=== PATIENT | male | born 1995 | race Two or more races ===

== ENCOUNTER 2017-07-27 20:38 | Inpatient (IN) | payer MEDICAID ==
[~2017-07-27] VITALS: Ht 188 cm; Wt 178.0 kg
[2017-07-27 22:42] LABS: Urine Bacteria NONE SEEN /hpf (None Seen); Urine Blood Negative /uL (Negative); Urine Mucus FEW (None Seen); Urine Specific Gravity 1.015 (1.001-1.035); Urine WBC 3 /hpf (0 - 3)
[2017-07-27] MEDS ORDERED: cefTRIAXone 1GM/10ml IVPUSH 10 ML IV ONE (22:45)
[2017-07-27] MEDS ORDERED: fentaNYL CITRATE 100 MCG/2 ML VL IV ONE (22:45)
[2017-07-27] MEDS ORDERED: SODIUM CHLORIDE 0.9% 1,000 ML IV ONE (22:45)
[2017-07-27] MEDS ORDERED: ACETAMINOPHEN 325 MG TAB PO ONE (23:00)
[2017-07-27 23:13] LABS: Basophils # (auto) 0.1 uL; Eosinophils # (auto) 0 uL; Lymphocytes # (auto) 0.6 uL; Monocytes # (auto) 1.8 uL; Neutrophils # (auto) 18.8 uL; Nucleated Red Blood Cells % 0.3 %
[2017-07-27 23:15] LABS: Basophils % (auto) 0.3 % (0.0-2.0); Hematocrit 45.5 % (41.0-53.0); Hemoglobin 15.6 g/dL (13.5-17.5); Lymphocytes % (auto) 2.8 % (10.0-50.0); Mean Corpuscular Hemoglobin 26.9 pg (28.0-32.0); Mean Corpuscular Hgb Conc. 34.3 g/dL (32.0-36.0); Mean Corpuscular Volume 78.5 fL (80.0-100.0); Monocytes % (auto) 8.4 % (0.0-12.0); Neutrophils % (auto) 88.5 % (37.0-80.0); Platelet Count (auto) 209 10^3/uL (140-450); Red Blood Cells 5.79 10^6/uL (4.5-5.90); Red Cell Distribution Width 14.6 % (11.8-14.3); White Blood Cell 21.2 10^3/uL (4.4-10.8)
[2017-07-28] VITALS (7 sets, daily range): BP systolic 133–141; BP diastolic 73–81
[2017-07-28] MEDS ORDERED: SOD CHL 0.45% WITH 20MEQ KCL 1,000 ML IV ONE (00:45)
[2017-07-28 01:17] LABS: Albumin 3.7 g/dL (3.4-5.0); BUN/Creatinine Ratio 13.8; Calcium 8.8 mg/dL (8.5-10.1)
[2017-07-28 01:25] LABS: Bilirubin, Total 1.2 mg/dL (0.2-1.0); Total Protein 8.4 g/dL (6.4-8.2)
[2017-07-28] MEDS: SOD CHL 0.45% WITH 20MEQ KCL 1,000 ML IV SCH ×3 (01:25→13:58)
[2017-07-28 01:26] LABS: Potassium 3.6 mmol/L (3.5-5.1)
[2017-07-28 01:42] LABS: INR 1.07 (0.9-1.15); Partial Thromboplastin Time 28.9 sec (23.78-33.04); Prothrombin Time 11.4 sec (9.27-12.13)
[2017-07-28] MEDS ORDERED: metroNIDAZOLE 500MG/100ML 100 ML IV ONE (02:45)
[2017-07-28] MEDS ORDERED: ACETAMINOPHEN 325 MG TAB PO PRN (02:45)
[2017-07-28] MEDS ORDERED: NITROGLYCERIN 0.4 MG SL TAB SL PRN (02:45)
[2017-07-28] MEDS ORDERED: MORPHINE SULFATE 8mg/ml INJ SDV IV PRN ×2 (02:45)
[2017-07-28] MEDS ORDERED: PANTOPRAZOLE 40 MG/10 ML VIAL IV ONE (02:45)
[2017-07-28] MEDS: ONDANSETRON HCL 4 MG/2 ML VIAL IV PRN (03:01)
[2017-07-28] MEDS: PIPERACILLIN-TAZOB 3.375GM 100 ML IV SCH ×4 (06:00→23:54)
[2017-07-28] MEDS: metroNIDAZOLE 500MG/100ML 100 ML IV SCH ×3 (06:00→21:30)
[2017-07-28] MEDS: PANTOPRAZOLE 40 MG/10 ML VIAL IV SCH (09:56)
[2017-07-28] MEDS ORDERED: fentaNYL CITRATE 100 MCG/2 ML VL ONE (10:06)
[2017-07-28] MEDS ORDERED: MIDAZOLAM HCL 1MG/1ML-2 ML VIAL ONE (10:06)
[2017-07-28] MEDS ORDERED: KETOROLAC TROMETH 60MG/2ML VIAL IM ONE (10:07)
[2017-07-28] MEDS ORDERED: ONDANSETRON HCL 4 MG/2 ML VIAL ONE (10:07)
[2017-07-28] MEDS ORDERED: ROCURONIUM 10MG/ML 10ML VIAL IV ONE (10:07)
[2017-07-28] MEDS ORDERED: GLYCOPYRROLATE 0.2 MG/ML 1ML VIAL ONE (10:07)
[2017-07-28] MEDS ORDERED: NEOSTIGMINE 1 MG/ML INJ (10mg/10ML VIAL) ONE (10:07)
[2017-07-28] MEDS ORDERED: PROPOFOL 10 MG/ML 20 ML IV ONE (10:07)
[2017-07-28] MEDS ORDERED: ceFAZolin 1GM/100ML 100 ML IV ONE (10:23)
[2017-07-28] MEDS ORDERED: MEPERIDINE HCL (50 MG/ML) 1 ML VIAL ONE (10:59)
[2017-07-28] MEDS ORDERED: SODIUM CHLORIDE LOCK 20 ML ONE (11:01)
[2017-07-28] MEDS ORDERED: POVIDONE IODINE 10 % TOPICAL OINT 30GM TOP ONE (11:37)
[2017-07-28] MEDS ORDERED: KETOROLAC TROMETH 30 MG/ML 1ML VIAL IV ONE (12:30)
[2017-07-28] MEDS ORDERED: METOCLOPRAMIDE HCL 5MG/ml INJ 2ml VIAL IV ONE (12:30)
[2017-07-28] MEDS ORDERED: HYDROmorphone HCL 2 MG/ML VL IV PRN (12:30)
[2017-07-29 05:00] VITALS: BP 157/82
[2017-07-29] MEDS: metroNIDAZOLE 500MG/100ML 100 ML IV SCH ×3 (05:34→23:29)
[2017-07-29] MEDS: PIPERACILLIN-TAZOB 3.375GM 100 ML IV SCH ×3 (06:17→18:55)
[2017-07-29 06:25] LABS: Basophils # (auto) 0 uL; Eosinophils # (auto) 0 uL; Hemoglobin 14.2 g/dL (13.5-17.5); Mean Corpuscular Hemoglobin 26.9 pg (28.0-32.0); Monocytes # (auto) 1.6 uL
[2017-07-29 06:29] LABS: Basophils % (auto) 0.1 % (0.0-2.0); Lymphocytes % (auto) 4.5 % (10.0-50.0); Mean Corpuscular Hgb Conc. 33.9 g/dL (32.0-36.0); Mean Corpuscular Volume 79.4 fL (80.0-100.0); Monocytes % (auto) 7.2 % (0.0-12.0); Neutrophils # (auto) 19.2 uL; Neutrophils % (auto) 88.2 % (37.0-80.0); Nucleated Red Blood Cells % 0.1 %; Platelet Count (auto) 178 10^3/uL (140-450); Red Blood Cells 5.28 10^6/uL (4.5-5.90); Red Cell Distribution Width 14.1 % (11.8-14.3); White Blood Cell 21.7 10^3/uL (4.4-10.8)
[2017-07-29] MEDS: SOD CHL 0.45% WITH 20MEQ KCL 1,000 ML IV SCH ×3 (06:30→18:55)
[2017-07-29] MEDS: ONDANSETRON HCL 4 MG/2 ML VIAL IV PRN (06:33)
[2017-07-29 06:39] LABS: Albumin 3.1 g/dL (3.4-5.0); Calcium 9.1 mg/dL (8.5-10.1); Potassium 3.7 mmol/L (3.5-5.1)
[2017-07-29 06:41] LABS: Bilirubin, Total 1.8 mg/dL (0.2-1.0); Total Protein 8.1 g/dL (6.4-8.2)
[2017-07-29 09:00] VITALS: BP 148/76
[2017-07-29] MEDS: PANTOPRAZOLE 40 MG/10 ML VIAL IV SCH (09:38)
[2017-07-29] MEDS: HYDROcodone-ACET 5/325MG TAB PO PRN ×4 (10:20→23:29)
[2017-07-29 13:00] VITALS: BP 154/88
[2017-07-29 17:00] VITALS: BP 141/85
[2017-07-29 23:42] VITALS: BP 140/76
[2017-07-30] MEDS: PIPERACILLIN-TAZOB 3.375GM 100 ML IV SCH ×4 (00:37→17:24)
[2017-07-30 04:55] VITALS: BP 130/70
[2017-07-30] MEDS: metroNIDAZOLE 500MG/100ML 100 ML IV SCH ×3 (06:24→21:43)
[2017-07-30] MEDS: SOD CHL 0.45% WITH 20MEQ KCL 1,000 ML IV SCH ×2 (06:25→11:20)
[2017-07-30 08:00] VITALS: BP 140/87
[2017-07-30 09:00] VITALS: BP 140/87
[2017-07-30] MEDS: PANTOPRAZOLE 40 MG/10 ML VIAL IV SCH (09:26)
[2017-07-30] MEDS: HYDROcodone-ACET 5/325MG TAB PO PRN (10:49)
[2017-07-30 13:00] VITALS: BP 144/75
[2017-07-30 17:00] VITALS: BP 143/77
[2017-07-30 23:10] VITALS: BP 148/74
[2017-07-31] MEDS: PIPERACILLIN-TAZOB 3.375GM 100 ML IV SCH ×2 (02:48→04:57)
[2017-07-31] MEDS: SOD CHL 0.45% WITH 20MEQ KCL 1,000 ML IV SCH ×4 (02:50→19:40)
[2017-07-31] MEDS: metroNIDAZOLE 500MG/100ML 100 ML IV SCH (04:57)
[2017-07-31 05:21] VITALS: BP 149/89
[2017-07-31 08:00] VITALS: BP_SYST 111; BP_SYST 151; BP_DIAS 66; BP_DIAS 79
[2017-07-31] MEDS: PANTOPRAZOLE 40 MG/10 ML VIAL IV SCH (10:15)
[2017-07-31 10:47] LABS: Basophils # (auto) 0 uL; Basophils % (auto) 0.2 % (0.0-2.0); Eosinophils # (auto) 0.1 uL; Monocytes # (auto) 1.6 uL
[2017-07-31 10:48] LABS: Eosinophils % (auto) 0.7 % (0.0-7.0); Mean Corpuscular Hgb Conc. 33.3 g/dL (32.0-36.0); Mean Corpuscular Volume 79.4 fL (80.0-100.0); Monocytes % (auto) 12.2 % (0.0-12.0); Neutrophils # (auto) 10.3 uL; Neutrophils % (auto) 78.9 % (37.0-80.0); Nucleated Red Blood Cells % 0.1 %; Platelet Count (auto) 209 10^3/uL (140-450); Red Blood Cells 4.91 10^6/uL (4.5-5.90); Red Cell Distribution Width 14.7 % (11.8-14.3)
[2017-07-31] MEDS ORDERED: LEVOFLOXACIN 750MG 150 ML IV SCH (11:00)
[2017-07-31 11:01] LABS: Mean Corpuscular Hemoglobin 26.4 pg (28.0-32.0)
[2017-07-31 11:05] LABS: BUN/Creatinine Ratio 13.4; Calcium 8.6 mg/dL (8.5-10.1); Potassium 3.3 mmol/L (3.5-5.1)
[2017-07-31] MEDS: LEVOFLOXACIN 250 MG TAB PO SCH (11:10)
[2017-07-31 12:00] VITALS: BP 156/73
[2017-07-31] MEDS: metroNIDAZOLE 500 MG TAB PO SCH ×2 (13:35→21:37)
[2017-07-31 16:44] VITALS: BP 146/85
[2017-07-31 20:00] VITALS: BP 139/71
[2017-07-31 22:27] VITALS: BP 139/71
[2017-08-01 05:02] VITALS: BP 145/87
[2017-08-01] MEDS: metroNIDAZOLE 500 MG TAB PO SCH ×2 (05:53→14:46)
[2017-08-01] MEDS: SOD CHL 0.45% WITH 20MEQ KCL 1,000 ML IV SCH ×2 (05:53→13:20)
[2017-08-01 08:59] VITALS: BP 151/77
[2017-08-01] MEDS: PANTOPRAZOLE 40 MG/10 ML VIAL IV SCH (09:41)
[2017-08-01] MEDS: LEVOFLOXACIN 250 MG TAB PO SCH (11:08)
[2017-08-01 14:19] VITALS: BP 161/82
[2017-08-01 17:00] VITALS: BP 155/72
[2017-08-01 17:29] VITALS: BP 143/83
== END 2017-08-01 18:45 | disposition home or self-care (01) | DRG 225 ==
LOC: ER 20:38 → TELE 20:39 → TELE-WESTW 07-28 03:03
PROVIDERS: ADMIT Nurse Practitioner; ATTEND Internal Medicine
PROC: 0DTJ4ZZ Resection of Appendix, Percutaneous Endoscopic Approach (ICD-10-PCS; principal; 2017-07-28 10:39)
DX: K35.2 Acute appendicitis with generalized peritonitis (principal); R65.11 Systemic inflammatory response syndrome (SIRS) of non-infectious origin with acute organ dysfunction; K76.0 Fatty (change of) liver, not elsewhere classified; Z68.43 Body mass index [BMI] 50.0-59.9, adult; E66.01 Morbid (severe) obesity due to excess calories; I48.91 Unspecified atrial fibrillation; I49.3 Ventricular premature depolarization; I97.791 Other intraoperative cardiac functional disturbances during other surgery; Y83.8 Other surgical procedures as the cause of abnormal reaction of the patient, or of later complication, without mention of misadventure at the time of the procedure; Y92.89 Other specified places as the place of occurrence of the external cause; Z71.3 Dietary counseling and surveillance
CPT/HCPCS: 36415; 71045; 74176; 80048; 80053; 81001; 83690; 85025; 85610; 85730; 86850; 86900; 86901; 87075; 87077; 87186; 87205; 93005; 96361; 96365; 96375; C9113; J0690; J1885; J2250; J2270; J2405; J2543; J2704; J3490

== ENCOUNTER 2017-08-18 08:30 | Inpatient (IN) | payer MEDICAID ==
[~2017-08-18] VITALS: Ht 185.4 cm; Wt 165.0 kg
[2017-08-18] MEDS ORDERED: SODIUM CHLORIDE 0.9% 1,000 ML IVB ONE (08:44)
[2017-08-18] MEDS ORDERED: IOHEXOL 300 MG/ML 100ML BOTTLE IJ ONE (11:20)
[2017-08-18 11:45] LABS: Basophils # (auto) 0 uL; Basophils % (auto) 0.2 % (0.0-2.0); Eosinophils # (auto) 0 uL; Eosinophils % (auto) 0.2 % (0.0-7.0); Hematocrit 39.2 % (41.0-53.0); Hemoglobin 12.9 g/dL (13.5-17.5); Lymphocytes # (auto) 1.4 uL; Lymphocytes % (auto) 9.5 % (10.0-50.0); Mean Corpuscular Hemoglobin 25.7 pg (28.0-32.0); Mean Corpuscular Hgb Conc. 32.9 g/dL (32.0-36.0); Mean Corpuscular Volume 78.2 fL (80.0-100.0); Monocytes # (auto) 1.5 uL; Neutrophils % (auto) 80.1 % (37.0-80.0); Platelet Count (auto) 274 10^3/uL (140-450); Red Blood Cells 5.01 10^6/uL (4.5-5.90)
[2017-08-18 12:03] LABS: Albumin 3.2 g/dL (3.4-5.0); BUN/Creatinine Ratio 15.3; Calcium 9.4 mg/dL (8.5-10.1); Magnesium 2.5 mg/dL (1.6-2.6); Total Protein 8.8 g/dL (6.4-8.2)
[2017-08-18] MEDS ORDERED: PROMETHAZINE HCL 25 MG/ML 1ML IV PRN (13:00)
[2017-08-18] MEDS ORDERED: NITROGLYCERIN 0.4 MG SL TAB SL PRN (13:00)
[2017-08-18] MEDS ORDERED: MORPHINE SULF(PF) 0.5MG/ML 10ML VIAL IV PRN (13:00)
[2017-08-18] MEDS ORDERED: PIPERACILLIN-TAZOB 3.375GM 100 ML IV ONE (13:00)
[2017-08-18] MEDS ORDERED: CLINDAMYCIN 900MG IV 50 ML IV ONE (13:00)
[2017-08-18] MEDS ORDERED: LORazepam 2MG/ML-1ML VIAL IV PRN (13:00)
[2017-08-18] MEDS ORDERED: PIPERACILLIN-TAZOB 3.375GM 100 ML IV SCH (13:02)
[2017-08-18] MEDS: SODIUM CHLORIDE 0.9% 1,000 ML IV SCH ×2 (14:30→20:55)
[2017-08-18] MEDS: CLINDAMYCIN 900MG IV 50 ML IV SCH ×2 (14:30→21:34)
[2017-08-18] MEDS: FAMOTIDINE (10MG/ML) 2ML VL IV SCH (14:43)
[2017-08-18] MEDS: PIPERACILLIN-TAZOB 3.375GM 100 ML IV SCH ×2 (15:52→21:00)
[2017-08-18 18:14] LABS: Urine Bacteria NONE SEEN /hpf (None Seen); Urine Blood Negative /uL (Negative); Urine Specific Gravity 1.037 (1.001-1.035); Urine WBC <1 /hpf (0 - 3)
[2017-08-18 20:20] VITALS: BP 144/68
[2017-08-18 22:00] VITALS: BP 144/68
[2017-08-19] MEDS: FAMOTIDINE (10MG/ML) 2ML VL IV SCH ×2 (01:17→14:09)
[2017-08-19] MEDS: PIPERACILLIN-TAZOB 3.375GM 100 ML IV SCH ×4 (02:19→20:19)
[2017-08-19] MEDS: NALBUPHINE HCL 10 MG/1ml INJECTION IV PRN ×2 (04:29→10:40)
[2017-08-19] MEDS: CLINDAMYCIN 900MG IV 50 ML IV SCH ×2 (04:44→14:09)
[2017-08-19] MEDS: SODIUM CHLORIDE 0.9% 1,000 ML IV SCH ×3 (04:48→15:43)
[2017-08-19 05:00] VITALS: BP 154/78
[2017-08-19 07:56] LABS: Basophils # (auto) 0 uL; Hemoglobin 12.9 g/dL (13.5-17.5); Lymphocytes # (auto) 1.5 uL; Lymphocytes % (auto) 10.4 % (10.0-50.0); White Blood Cell 14.4 10^3/uL (4.4-10.8)
[2017-08-19 07:59] LABS: Basophils % (auto) 0.2 % (0.0-2.0); Eosinophils # (auto) 0.1 uL; Eosinophils % (auto) 0.4 % (0.0-7.0); Hematocrit 38.4 % (41.0-53.0); Mean Corpuscular Hemoglobin 25.9 pg (28.0-32.0); Mean Corpuscular Hgb Conc. 33.5 g/dL (32.0-36.0); Mean Corpuscular Volume 77.2 fL (80.0-100.0); Monocytes # (auto) 1.4 uL; Neutrophils # (auto) 11.4 uL; Nucleated Red Blood Cells % 0.2 %; Platelet Count (auto) 278 10^3/uL (140-450); Red Blood Cells 4.98 10^6/uL (4.5-5.90); Red Cell Distribution Width 15.3 % (11.8-14.3)
[2017-08-19 08:00] VITALS: BP 127/58
[2017-08-19 08:22] LABS: Albumin 3.1 g/dL (3.4-5.0); BUN/Creatinine Ratio 12.8; Bilirubin, Total 1.5 mg/dL (0.2-1.0); Calcium 9.5 mg/dL (8.5-10.1); Potassium 4.3 mmol/L (3.5-5.1); Total Protein 8.8 g/dL (6.4-8.2)
[2017-08-19 12:00] VITALS: BP 144/81
[2017-08-19] MEDS ORDERED: metroNIDAZOLE 500MG/100ML 100 ML IV SCH (16:00)
[2017-08-19 16:45] VITALS: BP 138/75
[2017-08-19] MEDS: metroNIDAZOLE 500MG/100ML 100 ML IV SCH (18:03)
[2017-08-19 22:00] VITALS: BP 95/68
[2017-08-20] MEDS: SODIUM CHLORIDE 0.9% 1,000 ML IV SCH ×3 (00:45→20:45)
[2017-08-20] MEDS: FAMOTIDINE (10MG/ML) 2ML VL IV SCH ×2 (02:00→13:49)
[2017-08-20] MEDS: metroNIDAZOLE 500MG/100ML 100 ML IV SCH ×3 (02:00→18:10)
[2017-08-20] MEDS: PIPERACILLIN-TAZOB 3.375GM 100 ML IV SCH ×4 (04:00→23:00)
[2017-08-20 05:17] LABS: Monocytes # (auto) 1.4 uL; Neutrophils # (auto) 10.8 uL
[2017-08-20 05:20] LABS: Basophils # (auto) 0 uL; Basophils % (auto) 0.3 % (0.0-2.0); Eosinophils # (auto) 0 uL; Eosinophils % (auto) 0.2 % (0.0-7.0); Hematocrit 34.1 % (41.0-53.0); Hemoglobin 11.5 g/dL (13.5-17.5); Lymphocytes # (auto) 1.3 uL; Lymphocytes % (auto) 9.4 % (10.0-50.0); Mean Corpuscular Hemoglobin 25.9 pg (28.0-32.0); Mean Corpuscular Hgb Conc. 33.9 g/dL (32.0-36.0); Mean Corpuscular Volume 76.4 fL (80.0-100.0); Monocytes % (auto) 10.7 % (0.0-12.0); Neutrophils % (auto) 79.4 % (37.0-80.0); Platelet Count (auto) 228 10^3/uL (140-450); Red Blood Cells 4.47 10^6/uL (4.5-5.90); Red Cell Distribution Width 15.1 % (11.8-14.3); White Blood Cell 13.5 10^3/uL (4.4-10.8)
[2017-08-20 05:43] LABS: Albumin 2.7 g/dL (3.4-5.0); Calcium 8.8 mg/dL (8.5-10.1); Potassium 3.6 mmol/L (3.5-5.1)
[2017-08-20 05:46] LABS: BUN/Creatinine Ratio 14.3
[2017-08-20 05:49] LABS: Bilirubin, Total 1.4 mg/dL (0.2-1.0); Total Protein 7.8 g/dL (6.4-8.2)
[2017-08-20 06:00] VITALS: BP 148/75
[2017-08-20 09:00] VITALS: BP 156/84
[2017-08-20 13:00] VITALS: BP 133/73
[2017-08-20 17:00] VITALS: BP 131/56
[2017-08-20] MEDS ORDERED: VANCOMYCIN PER PHARMACY 0 MG IV SCH (18:30)
[2017-08-20] MEDS: ACETAMINOPHEN 325 MG TAB PO PRN (18:39)
[2017-08-20] MEDS: VANCOMYCIN 1,500 MG in D5W 5% 250 ML IV SCH (20:26)
[2017-08-20 22:00] VITALS: BP 132/73
[2017-08-21] MEDS: FAMOTIDINE (10MG/ML) 2ML VL IV SCH ×2 (01:22→14:05)
[2017-08-21] MEDS: metroNIDAZOLE 500MG/100ML 100 ML IV SCH ×3 (01:22→18:26)
[2017-08-21] MEDS: VANCOMYCIN 1,500 MG in D5W 5% 250 ML IV SCH ×3 (03:37→20:00)
[2017-08-21 05:00] VITALS: BP 140/70
[2017-08-21] MEDS: ACETAMINOPHEN 325 MG TAB PO PRN (05:39)
[2017-08-21] MEDS: PIPERACILLIN-TAZOB 3.375GM 100 ML IV SCH ×5 (05:40→23:05)
[2017-08-21] MEDS: SODIUM CHLORIDE 0.9% 1,000 ML IV SCH ×2 (06:17→16:45)
[2017-08-21 07:20] LABS: Albumin 2.5 g/dL (3.4-5.0); Bilirubin, Total 0.9 mg/dL (0.2-1.0); Calcium 8.6 mg/dL (8.5-10.1); Potassium 3.6 mmol/L (3.5-5.1); Total Protein 7.8 g/dL (6.4-8.2)
[2017-08-21 07:31] LABS: Basophils # (auto) 0 uL; Basophils % (auto) 0.3 % (0.0-2.0); Eosinophils # (auto) 0.1 uL; Eosinophils % (auto) 0.9 % (0.0-7.0); Hematocrit 37.3 % (41.0-53.0); Hemoglobin 11.7 g/dL (13.5-17.5); Lymphocytes # (auto) 1.1 uL; Lymphocytes % (auto) 11.1 % (10.0-50.0); Mean Corpuscular Hemoglobin 25.4 pg (28.0-32.0); Mean Corpuscular Hgb Conc. 31.4 g/dL (32.0-36.0); Monocytes # (auto) 1.1 uL; Neutrophils # (auto) 7.6 uL; Neutrophils % (auto) 76.7 % (37.0-80.0); Nucleated Red Blood Cells % 0.2 %; Platelet Count (auto) 213 10^3/uL (140-450); Red Blood Cells 4.61 10^6/uL (4.5-5.90); Red Cell Distribution Width 15.7 % (11.8-14.3)
[2017-08-21 08:32] VITALS: BP 140/75
[2017-08-21] MEDS ORDERED: GASTROGRAFIN 30 ML SOL ONE (09:36)
[2017-08-21] MEDS ORDERED: IOHEXOL 300 MG/ML 75ml BOTTLE IJ ONE (12:44)
[2017-08-21 13:01] VITALS: BP 125/74
[2017-08-21 17:00] VITALS: BP 140/71
[2017-08-21 20:15] VITALS: BP 152/76
[2017-08-21 22:00] VITALS: BP 152/76
[2017-08-22] MEDS: FAMOTIDINE (10MG/ML) 2ML VL IV SCH ×2 (00:19→13:30)
[2017-08-22] MEDS: metroNIDAZOLE 500MG/100ML 100 ML IV SCH ×3 (02:13→18:04)
[2017-08-22] MEDS: SODIUM CHLORIDE 0.9% 1,000 ML IV SCH ×2 (02:45→13:30)
[2017-08-22] MEDS: VANCOMYCIN 1,500 MG in D5W 5% 250 ML IV SCH ×3 (03:26→21:29)
[2017-08-22 05:52] LABS: Basophils # (auto) 0 uL; Basophils % (auto) 0.2 % (0.0-2.0); Eosinophils # (auto) 0.1 uL; Eosinophils % (auto) 0.9 % (0.0-7.0); Hemoglobin 11.4 g/dL (13.5-17.5); Lymphocytes # (auto) 1.2 uL; Lymphocytes % (auto) 10.5 % (10.0-50.0); Monocytes # (auto) 1.1 uL
[2017-08-22 05:54] LABS: Hematocrit 33.3 % (41.0-53.0); Mean Corpuscular Hemoglobin 25.9 pg (28.0-32.0); Mean Corpuscular Hgb Conc. 34.3 g/dL (32.0-36.0); Mean Corpuscular Volume 75.6 fL (80.0-100.0); Monocytes % (auto) 9.7 % (0.0-12.0); Neutrophils # (auto) 8.6 uL; Neutrophils % (auto) 78.7 % (37.0-80.0); Platelet Count (auto) 261 10^3/uL (140-450); Red Cell Distribution Width 15.7 % (11.8-14.3)
[2017-08-22 06:00] VITALS: BP 131/74
[2017-08-22] MEDS: PIPERACILLIN-TAZOB 3.375GM 100 ML IV SCH ×3 (06:11→21:30)
[2017-08-22 06:13] LABS: Potassium 3.4 mmol/L (3.5-5.1)
[2017-08-22 06:21] LABS: Albumin 2.6 g/dL (3.4-5.0); BUN/Creatinine Ratio 9.8; Bilirubin, Total 0.8 mg/dL (0.2-1.0); Calcium 8.8 mg/dL (8.5-10.1); Total Protein 7.7 g/dL (6.4-8.2)
[2017-08-22] MEDS ORDERED: GASTROGRAFIN 30 ML SOL ONE (06:59)
[2017-08-22 09:00] VITALS: BP 129/70
[2017-08-22] MEDS ORDERED: POTASSIUM CHL 20 Meq TABLET PO ONE (09:00)
[2017-08-22] MEDS ORDERED: MIDAZOLAM HCL 1MG/1ML-2 ML VIAL ONE (09:52)
[2017-08-22] MEDS ORDERED: fentaNYL CITRATE 100 MCG/2 ML VL ONE (09:53)
[2017-08-22] MEDS ORDERED: LIDOCAINE 2% (LOCAL ANESTH.) PF 5ml SDV ONE (10:16)
[2017-08-22 13:00] VITALS: BP 135/84
[2017-08-22] MEDS: NALBUPHINE HCL 10 MG/1ml INJECTION IV PRN ×2 (13:10→18:04)
[2017-08-22 17:00] VITALS: BP 122/79
[2017-08-22 22:00] VITALS: BP 105/88
[2017-08-23] MEDS: FAMOTIDINE (10MG/ML) 2ML VL IV SCH (01:25)
[2017-08-23] MEDS: metroNIDAZOLE 500MG/100ML 100 ML IV SCH ×2 (01:25→10:31)
[2017-08-23] MEDS: PIPERACILLIN-TAZOB 3.375GM 100 ML IV SCH ×2 (01:26→08:26)
[2017-08-23 05:00] VITALS: BP 128/59
[2017-08-23] MEDS: VANCOMYCIN 1,500 MG in D5W 5% 250 ML IV SCH ×2 (05:22→11:57)
[2017-08-23] MEDS: SODIUM CHLORIDE 0.9% 1,000 ML IV SCH ×2 (05:23→08:35)
[2017-08-23 06:27] LABS: Basophils # (auto) 0 uL; Basophils % (auto) 0.2 % (0.0-2.0); Eosinophils # (auto) 0 uL; Eosinophils % (auto) 0.4 % (0.0-7.0); Hemoglobin 11.5 g/dL (13.5-17.5); Monocytes # (auto) 0.8 uL; Red Cell Distribution Width 15.7 % (11.8-14.3); White Blood Cell 8.9 10^3/uL (4.4-10.8)
[2017-08-23 06:29] LABS: Lymphocytes % (auto) 11.7 % (10.0-50.0); Mean Corpuscular Volume 76.5 fL (80.0-100.0); Monocytes % (auto) 8.7 % (0.0-12.0); Nucleated Red Blood Cells % 0.1 %; Platelet Count (auto) 284 10^3/uL (140-450); Red Blood Cells 4.44 10^6/uL (4.5-5.90)
[2017-08-23 06:43] LABS: Albumin 2.7 g/dL (3.4-5.0); BUN/Creatinine Ratio 10.6; Bilirubin, Total 0.6 mg/dL (0.2-1.0); Calcium 9.3 mg/dL (8.5-10.1); Potassium 3.7 mmol/L (3.5-5.1)
[2017-08-23 08:31] VITALS: BP 149/88
[2017-08-23] MEDS ORDERED: METR500T PO (12:26)
[2017-08-23] MEDS ORDERED: LEVO500T21 PO (12:26)
[2017-08-23 13:00] VITALS: BP 150/70
== END 2017-08-23 15:07 | disposition home or self-care (01) | DRG 721 ==
LOC: ER 08:30 → TELE 08:31 → TELE-WESTW 20:20
PROVIDERS: ADMIT Internal Medicine; ATTEND Internal Medicine
PROC: 0W9G30Z Drainage of Peritoneal Cavity with Drainage Device, Percutaneous Approach (ICD-10-PCS; principal; 2017-08-22)
DX: T81.4XXA Infection following a procedure, initial encounter (principal); K65.1 Peritoneal abscess; A41.9 Sepsis, unspecified organism; R18.8 Other ascites; E87.1 Hypo-osmolality and hyponatremia; Z68.42 Body mass index [BMI] 45.0-49.9, adult; E66.01 Morbid (severe) obesity due to excess calories; E87.6 Hypokalemia; Y83.8 Other surgical procedures as the cause of abnormal reaction of the patient, or of later complication, without mention of misadventure at the time of the procedure; Z90.49 Acquired absence of other specified parts of digestive tract; Z82.49 Family history of ischemic heart disease and other diseases of the circulatory system; Z83.79 Family history of other diseases of the digestive system; Y92.89 Other specified places as the place of occurrence of the external cause
CPT/HCPCS: 36415; 72192; 74177; 75989; 80053; 80202; 81001; 83605; 83690; 83735; 85025; 87040; 87081; 87205; 93005; 94761; 96361; 96374; C1729; J2250; J2543; J3490; J7060; Q9967

== ENCOUNTER → 2019-09-20 | Emergency (ER) | payer SELFPAY ==
[~2019-09-20] VITALS: Ht 188 cm; Wt 181.4 kg
[~2019-09-20] MED LIST: LEVO500T21 PO; METR500T PO
[2019-09-21 00:01] VITALS: BP 174/82
[2019-09-21 00:34] LABS: Urine Bacteria FEW /hpf (None Seen); Urine Blood Negative /uL (Negative); Urine Mucus FEW (None Seen); Urine Specific Gravity 1.028 (1.001-1.035); Urine WBC 2 /hpf (0 - 3)
[2019-09-21 01:00] LABS: Basophils # (auto) 0 10 ^3/uL (0-0.2); Basophils % (auto) 0.5 % (0.0-2.0); Eosinophils # (auto) 0 10 ^3/uL (0-0.8); Hemoglobin 15.7 g/dL (13.5-17.5); Lymphocytes # (auto) 1.3 10 ^3/uL (0.4-5.4); Monocytes # (auto) 0.9 10 ^3/uL (0-1.3)
[2019-09-21 01:02] LABS: Eosinophils % (auto) 0.4 % (0.0-7.0); Hematocrit 46.9 % (41.0-53.0); Lymphocytes % (auto) 16.5 % (10.0-50.0); Mean Corpuscular Hemoglobin 26.5 pg (28.0-32.0); Mean Corpuscular Hgb Conc. 33.5 g/dL (32.0-36.0); Mean Corpuscular Volume 79.1 fL (80.0-100.0); Monocytes % (auto) 10.7 % (0.0-12.0); Neutrophils # (auto) 5.8 10 ^3/uL (1.6-8.6); Neutrophils % (auto) 71.9 % (37.0-80.0); Nucleated Red Blood Cells % 0.7 %; Platelet Count (auto) 207 10^3/uL (140-450); Red Blood Cells 5.93 10^6/uL (4.5-5.90); Red Cell Distribution Width 14.8 % (11.8-14.3); White Blood Cell 8.1 10^3/uL (4.4-10.8)
[2019-09-21 01:13] LABS: BUN/Creatinine Ratio 16.5; Calcium 9.2 mg/dL (8.5-10.1); Magnesium 2.4 mg/dL (1.6-2.6); Potassium 3.9 mmol/L (3.5-5.1)
[2019-09-21 01:15] LABS: Bilirubin, Total 0.7 mg/dL (0.2-1.0); Total Protein 8.5 g/dL (6.4-8.2)
== END | disposition home or self-care (01) ==
LOC: ER 23:03
DX: K80.80 Other cholelithiasis without obstruction (principal); Z79.899 Other long term (current) drug therapy
CPT/HCPCS: 36415; 76705; 80053; 81001; 82150; 83690; 83735; 85025